=== PATIENT | female | born 1995 | race Caucasian/White ===

== ENCOUNTER 2019-10-25 13:41 | Emergency (ER) | payer OTHER ==
[2019-10-25 13:52] VITALS: BP 118/50; PULSE 78; TEMP 98; BMI 30.6
[2019-10-25] MEDS ORDERED: KETOROLAC TROMETHAMINE 30 MG/1 ML VIAL IM ONE (15:25)
--- NOTE | 2019-10-25 15:58 | PDOC ---
History of Present Illness - General Chief Complaint: Pain Stated Complaint: ABD PAIN Time Seen by Provider: 10/25/19 14:10 History Source: Patient Exam Limitations: No Limitations Past History - Past Medical History Allergies/Adverse Reactions: Allergies Allergy/AdvReac Type Severity Reaction Status Date / Time amoxicillin Allergy Verified 10/25/19 13:52 Penicillins Allergy Verified 10/25/19 13:52 COPD: No - Psycho Social/Smoking Cessation Hx Smoking History: Current some day smoker Number of Cigarettes Smoked Daily: 2 Information on smoking cessation initiated: No *Physical Exam - Vital Signs Last Vital Signs Temp Pulse Resp BP Pulse Ox 98 F 78 18 118/50 L 99 10/25/19 13:48 10/25/19 13:48 10/25/19 13:48 10/25/19 13:48 10/25/19 13:48
[2019-10-25] MEDS ORDERED: KETOROLAC TROMETHAMINE 30 MG/1 ML VIAL ONE (16:49)
[2019-10-25] MEDS ORDERED: AZITHROMYCIN 500 MG TABLET PO ONE (17:45)
--- NOTE | 2019-10-25 17:55 | PDOC ---
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 Reports she was seen in July 2019 at [facility] for abdominal pain. She received a phone call yesterday informing her of a positive gonorrhea urine test. Reports having unprotected sex with male 1 month ago. Also complains of upper back pain intermittently for 1 month. Denies vaginal discharge, urinary symptoms, fever, chills, abdominal pain, chest pain, headache, back injury, weakness, paresthesias or any other symptoms. LMP September 27, 2019. ROS: GENERAL/CONSTITUTIONAL: No fever, chills, weakness, dizziness HEAD, EYES, EARS, NOSE AND THROAT: No changes in vision, No ear pain or discharge, No sore throat CARDIOVASCULAR: No chest pain RESPIRATORY: No shortness of breath or cough GASTROINTESTINAL: No pain, nausea, vomiting, diarrhea or constipation GENITOURINARY: No dysuria, no vaginal discharge, no vaginal bleeding MUSCULOSKELETAL: Upper back pain, no neck pain SKIN: No rash NEUROLOGIC: No headache, vertigo, loss of consciousness, or loss of sensation PE: GENERAL: well-appearing, NAD HEAD: NCAT EYES: Pupils equal, round and reactive to light, sclera anicteric, conjunctiva clear ENT: pharynx: no erythema, no exudate, uvula midline NECK: supple CHEST: nontender RESP: clear, no w/r/r CARDIO: rrr, no m/g/r ABD: +BS, soft, nontender, non distended BACK: no midline spinal ttp, no CVAT EXTREMITIES: Normal range of motion, no edema NEUROLOGICAL: Normal speech, normal gait SKIN: Large nontender lipoma to upper back, no surrounding erythema or warmth Is this a multiple visit Asthma Patient?: No Past History - Past Medical History Allergies/Adverse Reactions: Allergies Allergy/AdvReac Type Severity Reaction Status Date / Time amoxicillin Allergy Verified 10/25/19 13:52 Penicillins Allergy Verified 10/25/19 13:52 COPD: No - Psycho Social/Smoking Cessation Hx Smoking History: Current some day smoker Number of Cigarettes Smoked Daily: 2 Information on smoking cessation initiated: No *Physical Exam - Vital Signs Last Vital Signs Temp Pulse Resp BP Pulse Ox 98 F 78 18 118/50 L 99 10/25/19 13:48 10/25/19 13:48 10/25/19 13:48 10/25/19 13:48 10/25/19 13:48 ED Treatment Course - ADDITIONAL ORDERS Additional order review: Laboratory Results 10/25/19 16:00 Urine HCG, Qual Negative - Medications Given in the ED: ED Medications Discontinued Medications Generic Name Dose Route Start Last Admin Trade Name Fretahmina PRN Reason Stop Dose Admin Ketorolac Tromethamine 30 mg 10/25/19 15:25 10/25/19 16:51 Toradol Injection - IM 10/25/19 15:26 30 mg ONCE ONE Administration Medical Decision Making - Medical Decision Making 10/25/19 17:51 23-year-old female with history of chronic back pain, requesting treatment for recent diagnosis of gonorrhea -received a phone call from [facility] yesterday reporting a positive urine test for gonorrhea. Also presents complaining of upper back pain intermittently for a month. Recently moved back to [place] with family, does not have a PMD at this time. test negative IM Toradol 30 mg for back pain Treat with ceftriaxone and azithromycin for gonorrhea Advised male partners to also be treated for gonorrhea Safe sex advised Will refer to PMD Stable for discharge Discharge - Discharge Information Problems reviewed: Yes Clinical Impression/Diagnosis: STI (sexually transmitted infection) Back pain Qualifiers: Back pain location: back pain in other location Chronicity: acute Qualified Code(s): M54.9 - Dorsalgia, unspecified Condition: Stable Disposition: HOME - Admission No - Follow up/Referral - Patient Discharge Instructions Additional Instructions: Take ibuprofen 600 mg as needed every 6 hours for pain Follow-up with primary care doctor within 1 week Return to ED if worsening symptoms Practice safe sex - Post Discharge Activity
[2019-10-25] MEDS ORDERED: cefTRIAXone SODIUM 1 GM VIAL ONE (17:56)
[2019-10-25] MEDS ORDERED: AZITHROMYCIN 250 MG TABLET ONE (17:56)
== END 2019-10-25 19:15 | disposition home or self-care (01) ==
LOC: JERFT 13:41
PROC: 3E02329 Introduction of Other Anti-infective into Muscle, Percutaneous Approach (ICD-10-PCS; principal; 2019-10-25)
PROC: 3E0233Z Introduction of Anti-inflammatory into Muscle, Percutaneous Approach (ICD-10-PCS; 2019-10-25)
DX: A64 Unspecified sexually transmitted disease (principal); Z88.0 Allergy status to penicillin; Z88.8 Allergy status to other drugs, medicaments and biological substances; G89.29 Other chronic pain
CPT/HCPCS: 36415; 84703; 87491; 87591; 99282-25

== ENCOUNTER 2021-04-12 09:47 | Emergency (ER) | payer OTHER ==
[2021-04-12 10:04] VITALS: BP 115/56; PULSE 80; TEMP 97; BMI 34.9
[2021-04-12] MEDS ORDERED: SODIUM CHLORIDE 0.9% 500 ML INFUS.BAG IV ONE (10:20)
[2021-04-12] MEDS ORDERED: ACETAMINOPHEN 1000 MG/100 ML VIAL (NON FORMULARY) IVPB ONE (10:20)
[2021-04-12] MEDS ORDERED: ACETAMINOPHEN INJECTION 100 ML IVPB ONE (10:44)
[2021-04-12 11:03] LABS: PH,URINE 5.5 (5.0-8.0); URINE APPEARANCE CLOUDY; URINE BILIRUBIN NEGATIVE (NEGATIVE); URINE COLOR YELLOW; URINE GLUCOSE (UA) NEGATIVE (NEGATIVE); URINE KETONE TRACE (NEGATIVE); URINE LEUK ESTERASE NEGATIVE (NEGATIVE); URINE NITRITE NEGATIVE (NEGATIVE); URINE PROTEIN NEGATIVE (NEGATIVE); URINE UROBILINOGEN 0.2 mg/dL (0.2-1.0)
[2021-04-12 11:04] LABS: BASO % 0.5 % (0-2.0); EOS % 3.1 % (0-4.5); HEMATOCRIT 36.1 % (32.4-45.2); LYMPH % 32.7 % (8-40); MCH 28.1 pg (25.7-33.7); MCHC 33.3 g/dl (32.0-36.0); MEAN CELL VOLUME 84.4 fl (80-96); MEAN PLT VOLUME 7.3 fl (7.5-11.1); MONO % 6.1 % (3.8-10.2); NEUT % 57.6 % (42.8-82.8); PLATELET COUNT 330 K/MM3 (134-434); RBC 4.27 M/mm3 (3.60-5.2); RDW 14.8 % (11.6-15.6); WHITE BLOOD COUNT 8.2 K/mm3 (4.0-10.0)
[2021-04-12 11:25] LABS: ALBUMIN 3.8 g/dl (3.4-5.0); BLOOD UREA NITROGEN 7.1 mg/dL (7-18); CALCIUM 8.5 mg/dL (8.5-10.1)
[2021-04-12 11:28] LABS: CREATININE 0.6 mg/dL (0.55-1.3)
[2021-04-12 11:30] LABS: BILIRUBIN,TOTAL 0.4 mg/dL (0.2-1)
[2021-04-12] MEDS ORDERED: CYCLOBENZAPRINE HCL 10 MG TABLET (FP) PO ONE (12:55)
[2021-04-12] MEDS ORDERED: CYCLOBENZAPRINE HCL 10 MG TABLET (FP) ONE (13:00)
[2021-04-12] MEDS ORDERED: KETOROLAC TROMETHAMINE 30 MG/1 ML VIAL IM ONE (13:59)
[2021-04-12] MEDS ORDERED: KETOROLAC TROMETHAMINE 15 MG/ML VIAL ONE (14:04)
== END 2021-04-12 14:53 | disposition home or self-care (01) ==
LOC: JER 09:47
PROC: 3E033GC Introduction of Other Therapeutic Substance into Peripheral Vein, Percutaneous Approach (ICD-10-PCS; principal; 2021-04-12)
PROC: 3E023GC Introduction of Other Therapeutic Substance into Muscle, Percutaneous Approach (ICD-10-PCS; principal; 2021-04-12)
DX: M54.41 Lumbago with sciatica, right side (principal)
CPT/HCPCS: 36415; 72100-TC-FY; 80053; 81003; 84703; 85025; 87086; 99284-25; J0131

== ENCOUNTER 2021-05-24 17:28 | Emergency (ER) | payer OTHER ==
[2021-05-24 17:38] VITALS: BP 107/64; PULSE 78; TEMP 98.1; BMI 37.8
== END 2021-05-24 19:40 | disposition home or self-care (01) ==
LOC: JER 17:28
DX: J06.9 Acute upper respiratory infection, unspecified (principal); Z11.52 Encounter for screening for COVID-19
CPT/HCPCS: 71045-TC-FY; 99283-25; C9803; U0003; U0005

== ENCOUNTER 2021-11-14 19:00 | Emergency (ER) | payer OTHER ==
[2021-11-14 19:12] VITALS: BP 96/61; PULSE 84; TEMP 97.8; BMI 37.8
[2021-11-14] MEDS ORDERED: ACETAMINOPHEN 325 MG TABLET (FP) PO ONE (20:13)
[2021-11-14 20:38] LABS: BASO % 2.6 % (0-2.0); EOS % 1.5 % (0-4.5); HCG,QUALITATIVE URINE Positive; HEMATOCRIT 34.5 % (32.4-45.2); HEMOGLOBIN 11.2 GM/dL (10.7-15.3); LYMPH % 18.8 % (8-40); MCH 27.1 pg (25.7-33.7); MCHC 32.7 g/dl (32.0-36.0); MEAN CELL VOLUME 83.1 fl (80-96); MEAN PLT VOLUME 7.2 fl (7.5-11.1); MONO % 6.7 % (3.8-10.2); NEUT % 70.4 % (42.8-82.8); PLATELET COUNT 352 10^3/uL (134-434); RBC 4.15 M/mm3 (3.60-5.2); RDW 13.9 % (11.6-15.6); WHITE BLOOD COUNT 12.8 K/mm3 (4.0-10.0)
[2021-11-14 20:41] LABS: EPI CELLS >36 /uL (0-25.1); HYALINE CASTS 5 /uL (0-3.1); URINE APPEARANCE CLEAR; URINE BACTERIA 513 /uL (0-1359); URINE BILIRUBIN NEGATIVE (NEGATIVE); URINE COLOR YELLOW; URINE GLUCOSE (UA) NEGATIVE (NEGATIVE); URINE KETONE NEGATIVE (NEGATIVE); URINE LEUK ESTERASE NEGATIVE (NEGATIVE); URINE NITRITE NEGATIVE (NEGATIVE); URINE PROTEIN 1+ (NEGATIVE); URINE RBC 18 /uL (0-23.9); URINE WBC 20 /uL (0-25.8)
[2021-11-14 20:57] LABS: BLOOD UREA NITROGEN 8.6 mg/dL (7-18); CALCIUM 9.3 mg/dL (8.5-10.1)
[2021-11-14 21:01] LABS: CREATININE 0.6 mg/dL (0.55-1.3)
[2021-11-14 21:05] LABS: ANISOCYTOSIS 1+; MACROCYTOSIS 0; PLATELET ESTIMATE NORMAL; TARGET CELLS 1+
[2021-11-14] MEDS ORDERED: ACETAMINOPHEN 325 MG TABLET (FP) ONE (21:11)
== END 2021-11-14 22:10 | disposition left against medical advice (07) ==
LOC: JERFT 19:00 → JER 19:00 → JERFT 22:10
DX: O26.891 Other specified pregnancy related conditions, first trimester (principal); R10.9 Unspecified abdominal pain; Z3A.01 Less than 8 weeks gestation of pregnancy
CPT/HCPCS: 36415; 76817-TC; 80048; 81003; 84702; 84703; 85025; 86850; 86900; 86901; 87086; 99284-25